=== PATIENT | male | born 1960 | race Caucasian/White ===

== ENCOUNTER → 2016-10-21 | Outpatient (CLI) | payer OTHER ==
[~2016-10-21] MED LIST: CARDIZEM CD240 M1 PO; CLOBETASOL PRO118 ML TOP; CORDARONE200 M1 PO; COREG12.5 MG PO; FORTESTA60 GM TOP; FUROSEMIDE40 MG PO; GABAPENTIN300 MG PO; K-DUR20 ME1 PO; LANSOPRAZOLE30 MG PO; LIPITOR PO; LISINOPRIL20 MG PO; METFORMIN HCL500 M1 PO; METOPROLOL SUCC50 MG PO; PRADAXA150 MG PO; PREVACID PO; PROTONIX PO; SYNTHROID75 MCG PO; TAPAZOLE10 MG PO; [UNRECOGNIZED DRUG - OTHER] PR
[2016-10-21 11:02] LABS: HEMATOCRIT 41.5 % (38.0-50.0); MEAN CELL VOLUME 90.9 FL (83-96); MEAN CORPUSCULAR HEMOGLOBIN 30.6 PG (28-34); MEAN CORPUSCULAR HGB CONC 33.6 g/dL (30-36); MEAN PLATELET VOLUME 9.1 FL (6.5-11.5); RED BLOOD COUNT 4.57 X10e (3.90-5.60); RED CELL DISTRIBUTION WIDTH 13.2 % (11.0-15.5); WHITE BLOOD COUNT 6.2 X10e3 (4.0-10.5)
[2016-10-21 11:27] LABS: BUN/CREATININE RATIO 18.57; CALCIUM SERUM 8.6 mg/dL (8.4-10.2); CREATININE SERUM 1.4 mg/dL (0.6-1.4); GLOM FILT RATE Estimated 55.3 mL/min (>60); POTASSIUM 4.3 mmol/L (3.5-5.1)
[2016-10-21 12:10] LABS: THYROID STIMULATING HORMONE 4.5 uIU/ml (0.34-5.60)
[2016-10-21 16:14] LABS: TESTOSTERONE TOTAL 69.93 ng/dL (17-781)
[2016-10-21 16:25] LABS: FREE T3 2.7 pg/mL (2.5-3.9)
[2016-10-21 16:28] LABS: FREE THYROXIN (T4) 0.84 ng/dL (0.58-1.64)
== END | disposition home or self-care (01) ==
LOC: SLAB 10:44
PROVIDERS: Internal Medicine Endocrinology, Diabetes & Metabolism
DX: E03.9 Hypothyroidism, unspecified (principal); E11.9 Type 2 diabetes mellitus without complications; I48.91 Unspecified atrial fibrillation; G47.33 Obstructive sleep apnea (adult) (pediatric); I42.9 Cardiomyopathy, unspecified; Z95.810 Presence of automatic (implantable) cardiac defibrillator
CPT/HCPCS: 36415; 80048; 83036; 84403; 84439; 84443; 84481; 85027

== ENCOUNTER → 2016-11-04 | Outpatient (CLI) | payer OTHER ==
--- NOTE | ~2016-11-04 | US77 ---
[facility] A Service of [facility] & [facility] RADIOLOGY TEXT RESULTS PATIENT: FELICITY VIRAMONTES LOCATION: [place] : 56 UNIT #: [id number] AGE: [address]: VIRGINIA LACEY SEX: M ORDER DR: [id number] [address] [address] [id number] O MR#: [id number] Acc #: [id number] NAME: FELICITY VIRAMONTES : 1960 SEX: M STUDY DATE/TIME: 11/04/2016 9:27 UNIT: [facility] ROOM: STUDY DESCRIPTION: US Kidney Bilateral Complete Attending Physician: Virginia Lacey Referring Physician: Virginia Lacey Ordering Physician: Yudi Lacey M.D. Primary Care Physician: Eliceo Jara D.O. MEDICAL IMAGING REPORT This report is preliminary unless electronic signature is present. EXAM Renal ultrasound bilateral 11/04/2016 INDICATIONS 56-year-old male with acute renal failure. Creatinine 2.96, BUN 57, abnormal ultrasound 05/03/2016 demonstrating an indeterminate lesion in the left kidney measuring 1.7 cm. TECHNIQUE Sonographic imaging of the kidneys was performed. COMPARISON 05/03/2016 FINDINGS The right kidney measures 13.7 x 8.2 x 5.4 cm, and the left 13.5 x 6.0 x 4.6 cm. There is no hydronephrosis or shadowing stone on either side. The bladder is unremarkable. In the mid to lower pole left kidney there is a hypoechoic lesion measuring 16 x 21 x 15 mm. It previously measured 17 x 16 mm. There is no internal color-flow but there are internal echoes. This may represent a complicated cyst, but a small solid mass could present similarly and this remains indeterminate. It has increased in size slightly in at least 1 dimension over the past 6 months. Suggest further evaluation with a pre and postcontrast renal protocol CT for further assessment. IMPRESSION 1. Indeterminate hypoechoic lesion in the [id number] pole left kidney has increased slightly in size. This may represent a complicated cyst but a small hypoechoic solid mass could present similarly. Suggest further evaluation with a renal protocol with AND without contrast CT for further assessment. [facility] A Service of [facility] & [facility] RADIOLOGY TEXT RESULTS PATIENT: FELICITY VIRAMONTES LOCATION: [facility] : 56 UNIT #: [id number] AGE: [address]: VIRGINIA LACEY SEX: M ORDER DR: 2. No hydronephrosis or shadowing stone on either side. Bladder unremarkable. Dictated by... Hugh Zambrano M.D. THIS IS AN ELECTRONICALLY VERIFIED REPORT Hugh Zambrano M.D. at 11/05/2016 1:48 PM EDILIA/ralph TD: 11/05/2016 12:57 JOB #: [id number] MEDICAL IMAGING REPORT
== END | disposition home or self-care (01) ==
LOC: SGUS 09:09
DX: N17.9 Acute kidney failure, unspecified (principal); N18.2 Chronic kidney disease, stage 2 (mild); N28.89 Other specified disorders of kidney and ureter
CPT/HCPCS: 76775

== ENCOUNTER → 2017-01-27 | Outpatient (CLI) | payer OTHER ==
[2017-01-27 16:43] LABS: ALBUMIN SERUM 4.4 g/dL (3.5-5.0); BILIRUBIN,TOTAL 0.5 mg/dL (0.2-2.0); CALCIUM SERUM 8.7 mg/dL (8.4-10.2); CREATININE SERUM 1.4 mg/dL (0.6-1.4); POTASSIUM 3.6 mmol/L (3.5-5.1); PROTEIN TOTAL SERUM 7.5 g/dL (6.0-8.3)
[2017-01-27 21:10] LABS: TESTOSTERONE TOTAL 468.71 ng/dL (17-781)
== END | disposition home or self-care (01) ==
LOC: SLAB 14:49
PROVIDERS: Internal Medicine Endocrinology, Diabetes & Metabolism
DX: E05.90 Thyrotoxicosis, unspecified without thyrotoxic crisis or storm (principal); E11.9 Type 2 diabetes mellitus without complications; I48.91 Unspecified atrial fibrillation; R94.6 Abnormal results of thyroid function studies; G47.33 Obstructive sleep apnea (adult) (pediatric); I42.9 Cardiomyopathy, unspecified; E03.9 Hypothyroidism, unspecified; E29.1 Testicular hypofunction; Z95.810 Presence of automatic (implantable) cardiac defibrillator
CPT/HCPCS: 36415; 80053; 80061; 83036; 84403; 84443

== ENCOUNTER → 2017-03-17 | Outpatient (CLI) | payer OTHER ==
[2017-03-17 13:41] LABS: ALBUMIN SERUM 4.3 g/dL (3.5-5.0); BILIRUBIN,TOTAL 0.9 mg/dL (0.2-2.0); BUN/CREATININE RATIO 16.42; CALCIUM SERUM 8.4 mg/dL (8.4-10.2); CREATININE SERUM 1.4 mg/dL (0.6-1.4); GLOM FILT RATE Estimated 54.6 mL/min (>60); PHOSPHOROUS 2.9 mg/dL (2.5-4.6); POTASSIUM 3.8 mmol/L (3.5-5.1); PROTEIN TOTAL SERUM 6.9 g/dL (6.0-8.3)
[2017-03-17 13:52] LABS: MEAN CELL VOLUME 90.6 FL (83-96); MEAN CORPUSCULAR HEMOGLOBIN 30.9 PG (28-34); MEAN CORPUSCULAR HGB CONC 34.1 g/dL (30-36); MEAN PLATELET VOLUME 9.9 FL (6.5-11.5); RED BLOOD COUNT 4.86 X10e (3.90-5.60); RED CELL DISTRIBUTION WIDTH 13.5 % (11.0-15.5); WHITE BLOOD COUNT 6.9 X10e3 (4.0-10.5)
[2017-03-17 15:22] LABS: URINE APPEARANCE CLEAR; URINE BILIRUBIN NEG (NEG); URINE BLOOD NEG (NEG); URINE COLOR YELLOW; URINE GLUCOSE 300 MG/DL (NORM); URINE KETONE NEG (NEG); URINE LEUKOCYTE ESTERASE NEG (NEG); URINE NITRATE NEG (NEG); URINE PROTEIN NEG (NEG); URINE SPECIFIC GRAVITY 1.015 (1.003-1.035); URINE UROBILINOGEN 0.2 MG/DL (NORM)
[2017-03-17 15:47] LABS: MICRO INDICATED? NO
[2017-03-17 16:19] LABS: CREATININE,RANDOM URINE 117 mg/dL; TOTAL PROTEIN,RANDOM URINE <10 mg/dl (<10)
[2017-03-20 00:55] LABS: CALCIUM (PTHINTACT) 9.4 mg/dL (8.6-10.3)
== END | disposition home or self-care (01) ==
LOC: SLAB 09:07
PROVIDERS: Internal Medicine Nephrology
DX: N18.3 Chronic kidney disease, stage 3 (moderate) (principal)
CPT/HCPCS: 36415; 80053; 81003; 82310; 82570; 83735; 83970; 84100; 84156; 85027

== ENCOUNTER → 2017-05-05 | Outpatient (CLI) | payer OTHER ==
[2017-05-05 10:07] LABS: HEMATOCRIT 44.2 % (38.0-50.0); HEMOGLOBIN 14.8 gm/dL (13.0-16.0); MEAN CELL VOLUME 90.9 FL (83-96); MEAN CORPUSCULAR HEMOGLOBIN 30.5 PG (28-34); MEAN CORPUSCULAR HGB CONC 33.6 g/dL (30-36); MEAN PLATELET VOLUME 10.2 FL (6.5-11.5); RED BLOOD COUNT 4.86 X10e (3.90-5.60); RED CELL DISTRIBUTION WIDTH 13.1 % (11.0-15.5); WHITE BLOOD COUNT 7.2 X10e3 (4.0-10.5)
[2017-05-05 10:41] LABS: ALBUMIN SERUM 4.3 g/dL (3.5-5.0); BILIRUBIN,TOTAL 0.6 mg/dL (0.2-2.0); BUN/CREATININE RATIO 15.38; CALCIUM SERUM 8.5 mg/dL (8.4-10.2); CREATININE SERUM 1.3 mg/dL (0.6-1.4); GLOM FILT RATE Estimated 59.7 mL/min (>60); POTASSIUM 3.9 mmol/L (3.5-5.1); PROTEIN TOTAL SERUM 7.4 g/dL (6.0-8.3)
[2017-05-05 11:14] LABS: THYROID STIMULATING HORMONE 5.92 uIU/ml (0.34-5.60)
[2017-05-05 15:02] LABS: TESTOSTERONE TOTAL 284.35 ng/dL (17-781)
[2017-05-05 15:03] LABS: FREE T3 3.2 pg/mL (2.5-3.9)
[2017-05-05 15:04] LABS: FREE THYROXIN (T4) 0.84 ng/dL (0.58-1.64)
== END | disposition home or self-care (01) ==
LOC: SLAB 09:27
PROVIDERS: Internal Medicine Endocrinology, Diabetes & Metabolism
DX: E05.90 Thyrotoxicosis, unspecified without thyrotoxic crisis or storm (principal); E11.9 Type 2 diabetes mellitus without complications; E29.1 Testicular hypofunction; E03.9 Hypothyroidism, unspecified
CPT/HCPCS: 36415; 80053; 80061; 83036; 84403; 84439; 84443; 84481; 85027